=== PATIENT | male | born 1985 | race Caucasian/White ===

== ENCOUNTER 2017-11-21 12:08 | Emergency (ER) | payer MEDICAID ==
[2017-11-21 12:15] VITALS: O2SAT 99
[2017-11-21] MEDS ORDERED: Sodium Chloride 0.9% 1,000 ML IV STA (13:08)
[2017-11-21] MEDS ORDERED: levETIRAcetam 500 MG in Sodium Chloride 0.9% 100 ML IVPB ONE (13:08)
[2017-11-21 13:38] LABS: SQUAMOUS EPITHIAL < 1 /hpf (0-5); URINE BACTERIA RARE (<OCC); URINE BILIRUBIN NEGATIVE (NEGATIVE); URINE BLOOD NEGATIVE (NEGATIVE); URINE CLARITY SLIGHTY-CLOUDY (Clear); URINE COLOR YELLOW (YELLOW); URINE GLUCOSE (UA) NEG (Normal); URINE HYALINE CAST 0-2 /hpf (0-2); URINE LEUKOCYTE ESTERASE NEG Leu/uL (Negative); URINE PROTEIN 30 mg/dL (NEGATIVE); URINE UROBILINOGEN 0.2-1.0 mg/dL (0.2-1.0)
[2017-11-21 13:40] LABS: BASO % 0.4 % (0.0-2.0); EOS # 0.2 K/uL (0.0-0.7); EOS % 1.7 % (0.0-4.0); HEMOGLOBIN 15.6 g/dL (12.0-18.0); LYMPH # 1.6 K/uL (1.0-4.3); LYMPH % 14.4 % (20.0-40.0); MEAN CELL VOLUME 85.2 fl (80.0-94.0); MEAN CORPUSCULAR HEMOGLOBIN 28.6 pg (27.0-31.0); MEAN CORPUSCULAR HGB CONC 33.6 g/dL (33.0-37.0); MEAN PLATELET VOLUME 8.7 fl (7.2-11.7); MONO # 0.7 K/uL (0.0-0.8); MONO % 6.3 % (0.0-10.0); NEUT # 8.5 K/uL (1.8-7.0); NEUT % 77.2 % (50.0-75.0); RBC 5.46 Mil/uL (4.40-5.90); RED CELL DISTRIBUTION WIDTH 13.8 % (11.5-14.5)
[2017-11-21 13:47] LABS: ALB/GLOB RATIO 1.3 (1.0-2.1); ALBUMIN 4.8 g/dL (3.5-5.0); ALT/SGPT 247 U/L (21-72); AST/SGOT 92 U/L (17-59); BLOOD UREA NITROGEN 14 mg/dl (9-20); CALCIUM 10.1 mg/dL (8.4-10.2); GFR AFRICAN-AMERICAN > 60; GFR NON-AFRICAN AMERICAN > 60
--- NOTE | 2017-11-21 14:07 | ED PDOC ---
HPI: Seizure Time Seen by Provider: 11/21/17 12:15 Chief Complaint (Nursing): Seizure Chief Complaint (Provider): Seizure History Per: Patient History/Exam Limitations: no limitations Associated Symptoms: Bit Tongue (Left side) Additional Complaint(s): 32 years old male with history of seizures presents to the ED for evaluation after his niece witnessed generalized tonic clonic seizure prior to arrival. Patient states he has bitten his tongue and reports that the seizure resolved on itself. He reports he has been on medications for his seizure because they had side effects. Patient states he is on no medication at this time. He reports he is improved since onset. pt did not hit head according to niece. last seizure was one year ago. pt currently alert and oriented X3. pt is visiting his sister in [place] and his neurologist is in [facility] local. Past Medical History Reviewed: Historical Data, Nursing Documentation, Vital Signs Vital Signs: Last Vital Signs Temp 98.2 F 11/21/17 15:57 Pulse 84 11/21/17 15:57 Resp 14 11/21/17 15:57 BP 114/74 11/21/17 15:57 Pulse Ox 99 11/21/17 15:57 - Medical History PMH: Seizures - Surgical History Surgical History: No Surg Hx - Family History Family History: States: Unknown Family Hx - Social History Current smoker - smoking cessation education provided: No Alcohol: None Drugs: Denies - Immunization History Hx Tetanus Toxoid Vaccination: No Hx Influenza Vaccination: No Hx Pneumococcal Vaccination: No - Home Medications Home Medications: Ambulatory Orders Medication Instructions Recorded levETIRAcetam [Keppra] 500 mg PO BID #60 tab 03/30/16 - Allergies Allergies/Adverse Reactions: Allergies Allergy/AdvReac Type Severity Reaction Status Date / Time No Known Allergies Allergy Verified 03/29/16 12:45 Review of Systems ROS Statement: Except As Marked, All Systems Reviewed And Found Negative Neurological: Positive for: Seizures Physical Exam - Reviewed Nursing Documentation Reviewed: Yes Vital Signs Reviewed: Yes - Physical Exam Head Exam: Positive for: ATRAUMATIC, NORMAL INSPECTION, NORMOCEPHALIC Skin: Positive for: Normal Color, Warm, Dry ENT: Positive for: Other (abrasion on the left side of tongue with no active bleeding) Neck: Positive for: Normal, Painless ROM, Supple Cardiovascular/Chest: Positive for: Regular Rate, Rhythm. Negative for: Murmur Respiratory: Positive for: Normal Breath Sounds. Negative for: Respiratory Distress Gastrointestinal/Abdominal: Positive for: Normal Exam, Soft. Negative for: Tenderness Extremity: Positive for: Normal ROM Neurologic/Psych: Positive for: Alert, physician assistant primary care II-XII, Oriented (x 3), Gait (stable) . Negative for: Motor/Sensory Deficits, Aphasia, Facial Droop - Laboratory Results Result Diagrams: 11/21/17 13:25 11/21/17 13:25 - ECG O2 Sat by Pulse Oximetry: 99 (RA) Pulse Ox Interpretation: Normal Medical Decision Making Medical Decision Making: Time: 1308 Initial Impression: Seizure, r/o infection, r/o electrolyte abnormality. Initial Plan: --CMP --CBC --IV Fluids --Keppra 500 mg --Urine C&S --Urinalysis Time: 1545 Labs reviewewd and are significant for elevated LFT's. Lab findings discussed with patient and informed patient the need for follow up with his neurologist. also pt currently does not take any seizure medication, encouraged pt to follow up with his neurologist or our neurologist and restart medications. Patient is stable for discharge home, and is agreeable with plan. pt instructed not to drive until cleared by neurologist. Scribe Attestation: Documented by Harika Welsh, acting as a scribe for Beau Montero MD. Provider Scribe Attestation: All medical record entries made by the Scribe were at my direction and personally dictated by me. I have reviewed the chart and agree that the record accurately reflects my personal performance of the history, physical exam, medical decision making, and the department course for this patient. I have also personally directed, reviewed, and agree with the discharge instructions and disposition. Disposition - Clinical Impression Clinical Impression: Seizure disorder - Patient ED Disposition Is Patient to be Admitted: No Counseled Patient/Family Regarding: Studies Performed, Diagnosis, Need For Followup - Disposition Referrals: Florentino Don MD [Staff Provider] - Disposition: Routine/Home Disposition Time: 15:45 Condition: IMPROVED Additional Instructions: follow up with your or another neurologist in 1-2 days as you need to be on some form of anti seizure medication do not drive until restart medication return to the ED with any worsening or concerning symptoms Instructions: Seizures, Adult (DC) Forms: [employer] ([place])
[2017-11-21 15:58] VITALS: BP 114/74; PULSE 84; RESP 14; TEMP 98.2
== END 2017-11-21 15:59 | disposition home or self-care (01) ==
LOC: H.ER 12:08
DX: G40.909 Epilepsy, unspecified, not intractable, without status epilepticus (principal)
CPT/HCPCS: 80053; 81003; 85025; 87086; 96361; 96365; 99284; J1953; J7040